=== PATIENT | male | born 2000 | race Asian ===

== ENCOUNTER 2019-12-05 08:04 | Emergency (ER) | payer BC ==
[2019-12-05 08:42] VITALS: BP 118/78
--- NOTE | 2019-12-05 09:01 | UC ---
Throat Pain/Nasal Zac HPI - HPI Summary HPI Summary: Patient is a 19yo male presenting with family. Patient speaks luxembour[place], so an clerk analyst was used during the visit. Patient states he is here for fever, nasal congestion, and sore throat since last night. Denies cough. Denies n/v. Took sinus medication yesterday without relief. - History of Current Complaint Chief Complaint: UCRespiratory Stated Complaint: FEVER Hx Obtained From: Patient, Representative Pain Intensity: 0 - Allergies/Home Medications Allergies/Adverse Reactions: Allergies Allergy/AdvReac Type Severity Reaction Status Date / Time No Known Allergies Allergy Verified 12/05/19 08:42 Home Medications: Home Medications Phenylephrine HCl/Acetaminophn [Sinus-Headache Caplet] 2 tab PO Q8H MDD 4 [History Confirmed 12/05/19] PMH/Surg Hx/FS Hx/Imm Hx - Surgical History Surgical History: None - Family History Known Family History: Positive: Non-Contributory - Social History Alcohol Use: None Substance Use Type: None Smoking Status (MU): Never Smoked Tobacco Have You Smoked in the Last Year: No Review of Systems All Other Systems Reviewed And Are Negative: Yes Constitutional: Positive: Fever ENT: Positive: Sore Throat, Sinus Congestion Respiratory: Positive: Negative. Negative: Cough Cardiovascular: Positive: Negative Gastrointestinal: Positive: Negative. Negative: Vomiting, Nausea Musculoskeletal: Positive: Negative Neurological/Mental Status: Positive: Negative Physical Exam - Summary Physical Exam Summary: Vital Signs Reviewed: Yes A+Ox3, no distress, well-appearing Eyes: Conjunctiva Clear ENT: Hearing grossly normal, TM x 2 clear, moist, uvula midline, no exudate, + pharyngeal erythema Neck: Positive: Supple Respiratory: Positive: No respiratory distress, No accessory muscle use + CTA throughout no w/r Cardiovascular: RRR nl s1, s2 no m/r Musculoskeletal Exam: DEL REAL x 4 without difficulty Neurological: Positive: Alert Psychological: Positive: age appropriate behavior Skin: Positive: no rash, no ecchymosis Vital Signs: Initial Vital Signs Temp 97.5 F 12/05/19 08:17 Pulse 85 12/05/19 08:17 Resp 16 12/05/19 08:17 BP 118/78 12/05/19 08:17 Pulse Ox 99 12/05/19 08:17 Lab Results 12/05/19 12/05/19 Range/Units 09:00 09:02 Influenza A (Rapid) Positive H (Negative) Group A Strep Rapid Positive H (Negative) Throat Pain/Nasal Course/Dx - Course Course Of Treatment: Positive rapid strep and flu. Discussed this with patient. I treated with amoxicillin for strep throat. Educated on influenza and tamiflu. Patient states he prefers to be treated with tamiflu at this time so I provided prescription. Instructed to continue with symptomatic treatment and to follow up with [facility] if needed. Patient voiced understanding and agreed with treatment plan. - Differential Dx/Diagnosis Provider Diagnosis: Strep pharyngitis, Influenza A Discharge ED - Sign-Out/Discharge Documenting (check all that apply): Patient Departure All imaging exams completed and their final reports reviewed: No Studies - Discharge Plan Condition: Stable Disposition: HOME Prescriptions: Amoxicillin PO (*) [Amoxicillin 500 MG CAP*] 500 mg PO Q12H #20 cap Oseltamivir CAP* [Tamiflu CAP*] 75 mg PO BID #10 cap Patient Education Materials: Influenza (ED), Strep Throat (ED) Referrals: [facility] [Outside] Additional Instructions: As discussed, you tested positive for strep throat and the flu today. Take amoxicillin as prescribed for the treatment of strep throat. Take Tamiflu for treatment of the flu. You may continue with your over the counter sinus medication as directed. Get plenty of rest and fluids. Follow up with the [facility] listed below if symptoms do not resolve within 10 days. - Billing Disposition and Condition Condition: STABLE Disposition: Home
[2019-12-05 09:09] LABS: Influenza A Molecular POSITIVE (Negative)
== END 2019-12-05 09:47 | disposition home or self-care (01) ==
LOC: UCEAST 08:04
DX: J02.0 Streptococcal pharyngitis (principal); J10.1 Influenza due to other identified influenza virus with other respiratory manifestations
CPT/HCPCS: 87651; 99202; G0463